=== PATIENT | male | born 1950 | race Caucasian/White ===

== ENCOUNTER 2020-03-02 15:02 | Inpatient (IN) | payer MEDICARE ==
[2020-03-02] MEDS: Sodium Chloride 0.9% 10 ML Syringe FLUSH PRN (15:15)
[2020-03-02] MEDS ORDERED: Nitroglycerin 0.4 MG Tab.SL SL PRN ×2 (15:22→17:03)
[2020-03-02] MEDS ORDERED: Aspirin 81 MG Tab.Chew PO ONE (15:23)
[2020-03-02] MEDS ORDERED: Furosemide 40 MG/4 ML VIAL IVPUSH ONE (16:22)
[2020-03-02] MEDS ORDERED: Metolazone 5 MG Tab PO ONE (16:22)
[2020-03-02] MEDS ORDERED: Phytonadione 5 MG in Sodium Chloride 0.9% 50 ML IV ONE (16:22)
[2020-03-02] MEDS ORDERED: hydrALAZINE 20 MG/ML SDV IVPUSH STA (16:24)
[2020-03-02] MEDS ORDERED: cefTRIAXone 2 GM Vial IVPUSH STA (16:25)
--- NOTE | 2020-03-02 16:27 | CR ---
INDICATION: Chest pain/dyspnea. CHEST ONE VIEW: An AP upright portable view of the chest was obtained 03/02/20 - comparison studies were not available at time of dictation. The heart appears enlarged, median sternotomy is noted. Upper lung field pulmonary vasculature is somewhat prominent raising question of a mild or early CHF. Heavy markings make it difficult to exclude areas of patchy bronchopneumonia. However, no gross consolidating pneumonia, or effusion was identified. Overlying EKG leads are noted. Evidence of exogenous obesity is noted. IMPRESSION: 1. ASHD cardiomegaly with probable mild or early CHF. 2. Heavy markings making it difficult to exclude patchy bronchopneumonia - full inspiration PA and lateral views of the chest may be helpful when clinically possible. 3. Exogenous obesity. MTDD
--- NOTE | 2020-03-02 16:34 | EDM.PDOC ---
ED HPI GENERAL MEDICAL PROBLEM - General Chief Complaint: Chest Pain Stated Complaint: CHEST PAIN Time Seen by Provider: 03/02/20 15:15 Source of Information: Reports: Patient History Limitations: Reports: No Limitations - History of Present Illness INITIAL COMMENTS - FREE TEXT/NARRATIVE: 03/01/20 @ 6 pm patient started to have a chest pain over the sternal area, 8/10, radiating to both arms, with associated nausea but no vomiting. He also c/o dyspnea. He usually can walk 1 block without any dyspnea but now he can only walk 1-15 ft and he is winded. His chest pain persisted all day and went to the Ed for evaluation. - Related Data Allergies Allergy/AdvReac Type Severity Reaction Status Date / Time No Known Allergies Allergy Verified 03/02/20 16:07 ED ROS GENERAL - Review of Systems Review Of Systems: See Below Constitutional: Reports: No Symptoms HEENT: Reports: No Symptoms Respiratory: Reports: Shortness of Breath Cardiovascular: Reports: Chest Pain Endocrine: Reports: No Symptoms GI/Abdominal: Reports: No Symptoms : Reports: No Symptoms Musculoskeletal: Reports: No Symptoms Skin: Reports: No Symptoms Neurological: Reports: No Symptoms Psychiatric: Reports: No Symptoms ED EXAM, GENERAL - Physical Exam Exam: See Below Exam Limited By: No Limitations General Appearance: Alert, No Apparent Distress Ears: Normal External Exam, Normal Canal Nose: Normal Inspection, Normal Mucosa Throat/Mouth: Normal Inspection, Normal Lips, Normal Teeth Head: Atraumatic, Normocephalic Neck: Normal Inspection, Supple, Non-Tender, Full Range of Motion Respiratory/Chest: No Respiratory Distress, Crackles Cardiovascular: Normal Peripheral Pulses, Regular Rate, Rhythm, No Gallop, No JVD GI/Abdominal: Normal Bowel Sounds, Soft, Non-Tender, No Organomegaly Back Exam: Normal Inspection, Full Range of Motion Extremities: Normal Inspection, Normal Range of Motion, Non-Tender, Pedal Edema Neurological: Alert, Oriented, CN II-XII Intact, Normal Cognition Psychiatric: Normal Affect Skin Exam: Erythema Course - Vital Signs Text/Narrative:: Labs/EKG/CXR was discussed with patient ASA 324 mg po x1 NTG 0.4 mg X3 Lasix 40 mg IV x1 Zaroxolyn 5 mg PO x1 Hydralazine 20 mg IV Rocephin 2 mg IV x1 [id number] - Orders/Labs/Meds Orders: Active Orders 24 hr Category Date Time Status EKG Documentation Completion [RC] ASDIRECTED Care 03/02/20 15:52 Active CORONAVIRUS COVID-19 SERA [MOLEC] Stat Lab 03/02/20 15:20 Received CULTURE BLOOD [BC] Urgent Lab 03/02/20 15:30 Received CULTURE BLOOD [BC] Urgent Lab 03/02/20 15:46 Received D-DIMER QUANTITATIVE [COAG] Stat Lab 03/02/20 15:46 Received Nitroglycerin [Nitrostat] Med 03/02/20 15:22 Active 0.4 mg SL Q5M PRN Phytonadione [AquaMephyton] 5 mg Med 03/02/20 16:22 Active Sodium Chloride 0.9% [Normal Saline] 50 ml IV NOW Sodium Chloride 0.9% [Saline Flush] Med 03/02/20 15:17 Active 10 ml FLUSH ASDIRECTED PRN Blood Culture x2 Reflex Set [OM.PC] Urgent Oth 03/02/20 15:17 Ordered Saline Lock Insert [OM.PC] Routine Oth 03/02/20 15:17 Ordered EKG 12 Lead [EK] Routine Ther 03/02/20 15:52 Ordered Medication Orders Phytonadione 5 mg/ Sodium (Chloride) 50.5 mls @ 100 mls/hr IV NOW ONE Stop: 03/02/20 16:52 Nitroglycerin (Nitrostat) 0.4 mg SL Q5M PRN PRN Reason: Chest Pain Sodium Chloride (Saline Flush) 10 ml FLUSH ASDIRECTED PRN PRN Reason: Keep Vein Open Last Admin: 03/02/20 15:15 Dose: 10 ml Documented by: DEMOND Labs: Laboratory Tests 03/02/20 03/02/20 03/02/20 Range/Units 15:30 15:30 15:30 WBC 16.9 H (3.2-10.1) x10-3/uL RBC 5.73 (3.90-5.90) x10(6)uL Hgb 15.6 (12.9-17.7) g/dL Hct 49.3 (38.3-50.1) % MCV 86.0 (80.8-98.7) fL MCH 27.2 (27.0-33.3) pg MCHC 31.6 (28.7-35.3) g/dL RDW 16.0 H (12.4-15.0) % Plt Count 323 (117-477) x10(3)uL MPV 8.2 (6.7-11.0) fL Neut % (Auto) 83.4 H (40.3-71.8) % Lymph % (Auto) 6.7 L (15.8-45.3) % Garland % (Auto) 9.5 (5.5-15.2) % Eos % (Auto) 0.1 (0.1-6.8) % Baso % (Auto) 0.3 (0.3-3.8) % Neut # (Auto) 14.1 H (1.7-6.9) x10-3/uL Lymph # (Auto) 1.1 (0.5-4.5) x10-3/uL Garland # (Auto) 1.6 H (0.0-1.2) x10-3/uL Eos # (Auto) 0.0 (0.0-0.6) x10-3/uL Baso # (Auto) 0.0 (0.0-0.3) x10-3/uL Add Manual Diff Yes Neutrophils % (Manual) 81 (46-82) % Lymphocytes % (Manual) 9 L (13-37) % Monocytes % (Manual) 10 (4-12) % PT 51.6 H* (9.0-11.1) sec INR 5.33 H* (1.00-1.24) APTT 46.4 H (24.4-33.2) SECONDS Sodium 138 (135-145) mmol/L Potassium 4.3 (3.5-5.3) mmol/L Chloride 100 (100-110) mmol/L Carbon Dioxide 25 (21-32) mmol/L BUN 15 (7-18) mg/dL Creatinine 1.0 (0.70-1.30) mg/dL Est Cr Clr Drug Dosing TNP Estimated GFR (MDRD) > 60 (>60) BUN/Creatinine Ratio 15.0 (9-20) Glucose 84 (80-116) mg/dL Lactic Acid (0.4-2.0) mmol/L Calcium 8.9 (8.6-10.2) mg/dL Total Bilirubin 1.1 (0.1-1.3) mg/dL AST 16 (5-25) IU/L ALT 18 (12-36) U/L Alkaline Phosphatase 146 H (56-112) IU/L Troponin I (4.0-60.3) pg/mL NT-Pro-B Natriuret Pep (<=125) pg/mL Total Protein 7.7 (6.0-8.0) g/dL Albumin 3.4 (3.2-4.6) g/dL Globulin 4.3 g/dL Albumin/Globulin Ratio 0.8 03/02/20 03/02/20 Range/Units 15:46 15:46 WBC (3.2-10.1) x10-3/uL RBC (3.90-5.90) x10(6)uL Hgb (12.9-17.7) g/dL Hct (38.3-50.1) % MCV (80.8-98.7) fL MCH (27.0-33.3) pg MCHC (28.7-35.3) g/dL RDW (12.4-15.0) % Plt Count (117-477) x10(3)uL MPV (6.7-11.0) fL Neut % (Auto) (40.3-71.8) % Lymph % (Auto) (15.8-45.3) % Garland % (Auto) (5.5-15.2) % Eos % (Auto) (0.1-6.8) % Baso % (Auto) (0.3-3.8) % Neut # (Auto) (1.7-6.9) x10-3/uL Lymph # (Auto) (0.5-4.5) x10-3/uL Garland # (Auto) (0.0-1.2) x10-3/uL Eos # (Auto) (0.0-0.6) x10-3/uL Baso # (Auto) (0.0-0.3) x10-3/uL Add Manual Diff Neutrophils % (Manual) (46-82) % Lymphocytes % (Manual) (13-37) % Monocytes % (Manual) (4-12) % PT (9.0-11.1) sec INR (1.00-1.24) APTT (24.4-33.2) SECONDS Sodium (135-145) mmol/L Potassium (3.5-5.3) mmol/L Chloride (100-110) mmol/L Carbon Dioxide (21-32) mmol/L BUN (7-18) mg/dL Creatinine (0.70-1.30) mg/dL Est Cr Clr Drug Dosing Estimated GFR (MDRD) (>60) BUN/Creatinine Ratio (9-20) Glucose (80-116) mg/dL Lactic Acid 1.4 (0.4-2.0) mmol/L Calcium (8.6-10.2) mg/dL Total Bilirubin (0.1-1.3) mg/dL AST (5-25) IU/L ALT (12-36) U/L Alkaline Phosphatase (56-112) IU/L Troponin I 16.8 (4.0-60.3) pg/mL NT-Pro-B Natriuret Pep 1739 H* (<=125) pg/mL Total Protein (6.0-8.0) g/dL Albumin (3.2-4.6) g/dL Globulin g/dL Albumin/Globulin Ratio Meds: Medications Generic Name Dose Route Start Last Admin Trade Name Freq PRN Reason Stop Dose Admin Phytonadione 5 mg/ Sodium 50.5 mls @ 100 mls/hr 03/02/20 16:22 Chloride IV 03/02/20 16:52 NOW ONE Nitroglycerin 0.4 mg 03/02/20 15:22 Nitrostat SL Q5M PRN Chest Pain Sodium Chloride 10 ml 03/02/20 15:17 03/02/20 15:15 Saline Flush FLUSH 10 ml ASDIRECTED PRN Administration Keep Vein Open Discontinued Medications Generic Name Dose Route Start Last Admin Trade Name Freq PRN Reason Stop Dose Admin Aspirin 324 mg 03/02/20 15:23 03/02/20 15:15 Aspirin PO 03/02/20 15:24 324 mg ONETIME ONE Administration Ceftriaxone Sodium 2 gm 03/02/20 16:25 Rocephin IVPUSH 03/02/20 16:26 NOW STA Furosemide 40 mg 03/02/20 16:22 Lasix IVPUSH 03/02/20 16:23 NOW ONE Hydralazine HCl 20 mg 03/02/20 16:24 Apresoline IVPUSH 03/02/20 16:25 NOW STA Metolazone 5 mg 03/02/20 16:22 Zaroxolyn PO 03/02/20 16:23 ONETIME ONE Departure - Departure Time of Disposition: 16:50 Disposition: Admitted As Inpatient 67 Condition: Good Clinical Impression: Cellulitis, Elevated INR, Atrial flutter, CHF exacerbation, Chest pain Referrals: Eric Dacosta MD [Primary Care Provider] - - My Orders Last 24 Hours: My Active Orders 03/02/20 15:17 Sodium Chloride 0.9% [Saline Flush] 10 ml FLUSH ASDIRECTED PRN Blood Culture x2 Reflex Set [OM.PC] Urgent Saline Lock Insert [OM.PC] Routine 03/02/20 15:20 CORONAVIRUS COVID-19 SERA [MOLEC] Stat 03/02/20 15:22 Nitroglycerin [Nitrostat] 0.4 mg SL Q5M PRN 03/02/20 15:30 CULTURE BLOOD [BC] Urgent 03/02/20 15:46 CULTURE BLOOD [BC] Urgent D-DIMER QUANTITATIVE [COAG] Stat 03/02/20 15:52 EKG Documentation Completion [RC] ASDIRECTED EKG 12 Lead [EK] Routine 03/02/20 16:22 Phytonadione [AquaMephyton] 5 mg Sodium Chloride 0.9% [Normal Saline] 50 ml IV NOW - Assessment/Plan Last 24 Hours: My Active Orders 03/02/20 15:17 Sodium Chloride 0.9% [Saline Flush] 10 ml FLUSH ASDIRECTED PRN Blood Culture x2 Reflex Set [OM.PC] Urgent Saline Lock Insert [OM.PC] Routine 03/02/20 15:20 CORONAVIRUS COVID-19 SERA [MOLEC] Stat 03/02/20 15:22 Nitroglycerin [Nitrostat] 0.4 mg SL Q5M PRN 03/02/20 15:30 CULTURE BLOOD [BC] Urgent 03/02/20 15:46 CULTURE BLOOD [BC] Urgent D-DIMER QUANTITATIVE [COAG] Stat 03/02/20 15:52 EKG Documentation Completion [RC] ASDIRECTED EKG 12 Lead [EK] Routine 03/02/20 16:22 Phytonadione [AquaMephyton] 5 mg Sodium Chloride 0.9% [Normal Saline] 50 ml IV NOW
[2020-03-02] MEDS ORDERED: Ondansetron 4 MG/2 ML SDV IV PRN (16:57)
[2020-03-02] MEDS ORDERED: Ketoconazole 2% Crm 30 GM Tube TOP PRN (17:03)
[2020-03-02] MEDS ORDERED: Hyoscyamine 0.125 MG Tab.SL SL PRN (17:23)
[2020-03-02] MEDS ORDERED: Insulin Lispro 100 Unit/ML 3 ML KwikPen SUBCUT SCH (18:00)
[2020-03-02] MEDS: Gemfibrozil 600 MG Tab PO SCH (18:04)
[2020-03-02] MEDS ORDERED: INSULIN DEGLUDEC 200 UNIT/ML SUBCUT SCH (21:00)
[2020-03-02] MEDS: Melatonin 3 MG Tab PO SCH (21:19)
[2020-03-02] MEDS: Metoprolol Tartrate 50 MG Tab PO SCH (21:20)
[2020-03-02] MEDS: Morphine 15 MG Tab.ER PO SCH (21:20)
[2020-03-02] MEDS: hydrALAZINE 50 MG Tab PO SCH (21:20)
[2020-03-02] MEDS: Acetaminophen 325 MG Tab PO PRN (22:45)
[2020-03-03] MEDS ORDERED: Insulin Lispro 100 Unit/ML 3 ML KwikPen SUBCUT SCH (07:30)
[2020-03-03] MEDS ORDERED: Furosemide 40 MG/4 ML VIAL IVPUSH SCH (08:00)
--- NOTE | 2020-03-03 08:46 | PCM.HP.2 ---
H&P History of Present Illness - General Date of Service: 03/03/20 Admit Problem/Dx: Admission Diagnosis/Problem Admission Diagnosis/Problem Chest pain Source of Information: Patient, Old Records History Limitations: Reports: No Limitations - History of Present Illness Initial Comments - Free Text/Narative: Sara is a 69-year-old male with coronary artery disease, who presented with shortness of breath on mild exertion, left-sided chest pain for at least 1-1/2 days. The pain was unrelieved by nitroglycerin. He describes mild to moderate pain radiating to the left arm. In the Emergency Room he was given some Lasix 40 mg IV with excellent diuresis, and this morning he feels much better. 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.His legs are chronically edematous mid chest Pain Score (Numeric/FACES): 7 - Related Data Allergies/Adverse Reactions: Allergies Allergy/AdvReac Type Severity Reaction Status Date / Time No Known Allergies Allergy Verified 03/02/20 18:27 Home Medications: Home Meds Aspirin [Halfprin] 81 mg PO DAILY 03/02/20 [History] Dapagliflozin Propanediol [Farxiga] 5 mg PO DAILY 03/02/20 [History] Finasteride 5 mg PO DAILY 03/02/20 [History] Furosemide [Lasix] 20 mg PO DAILY 03/02/20 [History] Hyoscyamine [Levsin] 0.125 mg SL QID PRN 03/02/20 [History] Insulin Aspart [NovoLOG] 22 unit SUBCUT ACBREAKFAST 03/02/20 [History] Insulin Aspart [NovoLOG] 26 units SUBCUT BID@12,18 03/02/20 [History] Insulin Degludec [Tresiba Flextouch U-200] 60 units SUBCUT BEDTIME 03/02/20 [History] Isosorbide Mononitrate [Imdur] 60 mg PO DAILY 03/02/20 [History] Ketoconazole [Nizoral 2% Crm] 1 applic TOP DAILY PRN 03/02/20 [History] Losartan [Cozaar] 100 mg PO DAILY 03/02/20 [History] Melatonin 3 mg PO BEDTIME 03/02/20 [History] Metoprolol Tartrate [Lopressor] 50 mg PO BID 03/02/20 [History] Morphine [MS Contin] 15 mg PO BID 03/02/20 [History] Naproxen 500 mg PO BID 03/02/20 [History] Nitroglycerin [Nitrostat] 0.4 mg SL Q5M PRN 03/02/20 [History] Pramipexole Di-HCl [Mirapex] 1 mg PO TID 03/02/20 [History] Rosuvastatin [Crestor] 40 mg PO DAILY 03/02/20 [History] Tamsulosin HCl [Flomax] 0.4 mg PO DAILY 03/02/20 [History] Warfarin [Coumadin] 2.5 mg PO MOWEFR 03/02/20 [History] Warfarin [Coumadin] 5 mg PO SUTUTHSA 03/02/20 [History] amLODIPine Besylate [Amlodipine Besylate] 10 mg PO DAILY 03/02/20 [History] gemfibroziL [Lopid] 600 mg PO BIDMEALS 03/02/20 [History] hydrALAZINE HCl [Hydralazine HCl] 50 mg PO TID 03/02/20 [History] Past Medical History HEENT History: Reports: Cataract Cardiovascular History: Reports: Blood Clots/VTE/DVT, Bypass, CAD, High Cholesterol, Hypertension Respiratory History: Reports: Sleep Apnea, Other (See Below) Other Respiratory History: lung nodule Gastrointestinal History: Reports: Diverticulosis, GERD Genitourinary History: Reports: Prostate Disorder Other Genitourinary History: LUTS; Elevated PSA Musculoskeletal History: Reports: Osteoarthritis Endocrine/Metabolic History: Reports: Diabetes, Type II Hematologic History: Reports: Anticoagulation Therapy - Infectious Disease History Infectious Disease History: Reports: Other (See Below) Other Infectious Disease History: unknown - Past Surgical History HEENT Surgical History: Reports: None Cardiovascular Surgical History: Reports: Coronary Artery Bypass, Other (See Below) Other Cardiovascular Surgeries/Procedures: bypass x8 in 2000 GI Surgical History: Reports: Appendectomy, Colonoscopy, Hernia Repair/Other Male Surgical History: Reports: None Musculoskeletal Surgical History: Reports: Knee Replacement, Other (See Below) Other Musculoskeletal Surgeries/Procedures:: lumbar spine surgey Social & Family History - Tobacco Use Tobacco Use Status *Q: Never Tobacco User Second Hand Smoke Exposure: No - Caffeine Use Caffeine Use: Reports: Soda - Recreational Drug Use Recreational Drug Use: No H&P Review of Systems - Review of Systems: Review Of Systems: Comprehensive ROS is negative, except as noted in HPI. Exam - Exam Exam: See Below - Vital Signs Vital Signs: Last Vital Signs Temp 98.6 F 03/03/20 04:00 Pulse 60 03/03/20 04:00 Resp 18 03/03/20 04:00 BP 122/61 03/03/20 04:00 Pulse Ox 95 03/03/20 04:00 Weight: 117.753 kg - Exam Quality Assessment: Supplemental Oxygen General: Alert, Oriented HEENT: PERRLA Neck: Supple Lungs: Clear to Auscultation, Crackles Cardiovascular: Irregular Rhythm GI/Abdominal Exam: Normal Bowel Sounds, Soft Back Exam: Normal Inspection Extremities: Pedal Edema, Mottled, Redness. No: Increased Warmth Skin: Warm, Dry Neurological: Cranial Nerves Intact Neuro Extensive - Mental Status: Alert, Oriented x3 Neuro Extensive - Motor, Sensory, Reflexes: CN II-XII Intact Psychiatric: Alert, Normal Affect - Patient Data Lab Results Last 24 hrs: Laboratory Results - last 24 hr 03/02/20 03/02/20 03/02/20 Range/Units 15:20 15:21 15:30 WBC 16.9 H (3.2-10.1) x10-3/uL RBC 5.73 (3.90-5.90) x10(6)uL Hgb 15.6 (12.9-17.7) g/dL Hct 49.3 (38.3-50.1) % MCV 86.0 (80.8-98.7) fL MCH 27.2 (27.0-33.3) pg MCHC 31.6 (28.7-35.3) g/dL RDW 16.0 H (12.4-15.0) % Plt Count 323 (117-477) x10(3)uL MPV 8.2 (6.7-11.0) fL Neut % (Auto) 83.4 H (40.3-71.8) % Lymph % (Auto) 6.7 L (15.8-45.3) % Clare % (Auto) 9.5 (5.5-15.2) % Eos % (Auto) 0.1 (0.1-6.8) % Baso % (Auto) 0.3 (0.3-3.8) % Neut # (Auto) 14.1 H (1.7-6.9) x10-3/uL Lymph # (Auto) 1.1 (0.5-4.5) x10-3/uL Clare # (Auto) 1.6 H (0.0-1.2) x10-3/uL Eos # (Auto) 0.0 (0.0-0.6) x10-3/uL Baso # (Auto) 0.0 (0.0-0.3) x10-3/uL Add Manual Diff Yes Neutrophils % (Manual) 81 (46-82) % Band Neutrophils % (0-6) % Lymphocytes % (Manual) 9 L (13-37) % Monocytes % (Manual) 10 (4-12) % PT (9.0-11.1) sec INR (1.00-1.24) APTT (24.4-33.2) SECONDS D-Dimer, Quantitative (0.0-0.59) mg/LFEU Sodium (135-145) mmol/L Potassium (3.5-5.3) mmol/L Chloride (100-110) mmol/L Carbon Dioxide (21-32) mmol/L BUN (7-18) mg/dL Creatinine (0.70-1.30) mg/dL Est Cr Clr Drug Dosing Estimated GFR (MDRD) (>60) BUN/Creatinine Ratio (9-20) Glucose (80-116) mg/dL POC Glucose 62 L (74-100) mg/dL Lactic Acid (0.4-2.0) mmol/L Calcium (8.6-10.2) mg/dL Total Bilirubin (0.1-1.3) mg/dL AST (5-25) IU/L ALT (12-36) U/L Alkaline Phosphatase (56-112) IU/L Troponin I (4.0-60.3) pg/mL NT-Pro-B Natriuret Pep (<=125) pg/mL Total Protein (6.0-8.0) g/dL Albumin (3.2-4.6) g/dL Globulin g/dL Albumin/Globulin Ratio SARS-CoV-2 RNA (SERA) Negative (NEGATIVE) 03/02/20 03/02/20 03/02/20 Range/Units 15:30 15:30 15:46 WBC (3.2-10.1) x10-3/uL RBC (3.90-5.90) x10(6)uL Hgb (12.9-17.7) g/dL Hct (38.3-50.1) % MCV (80.8-98.7) fL MCH (27.0-33.3) pg MCHC (28.7-35.3) g/dL RDW (12.4-15.0) % Plt Count (117-477) x10(3)uL MPV (6.7-11.0) fL Neut % (Auto) (40.3-71.8) % Lymph % (Auto) (15.8-45.3) % Clare % (Auto) (5.5-15.2) % Eos % (Auto) (0.1-6.8) % Baso % (Auto) (0.3-3.8) % Neut # (Auto) (1.7-6.9) x10-3/uL Lymph # (Auto) (0.5-4.5) x10-3/uL Clare # (Auto) (0.0-1.2) x10-3/uL Eos # (Auto) (0.0-0.6) x10-3/uL Baso # (Auto) (0.0-0.3) x10-3/uL Add Manual Diff Neutrophils % (Manual) (46-82) % Band Neutrophils % (0-6) % Lymphocytes % (Manual) (13-37) % Monocytes % (Manual) (4-12) % PT 51.6 H* (9.0-11.1) sec INR 5.33 H* (1.00-1.24) APTT 46.4 H (24.4-33.2) SECONDS D-Dimer, Quantitative (0.0-0.59) mg/LFEU Sodium 138 (135-145) mmol/L Potassium 4.3 (3.5-5.3) mmol/L Chloride 100 (100-110) mmol/L Carbon Dioxide 25 (21-32) mmol/L BUN 15 (7-18) mg/dL Creatinine 1.0 (0.70-1.30) mg/dL Est Cr Clr Drug Dosing TNP Estimated GFR (MDRD) > 60 (>60) BUN/Creatinine Ratio 15.0 (9-20) Glucose 84 (80-116) mg/dL POC Glucose (74-100) mg/dL Lactic Acid (0.4-2.0) mmol/L Calcium 8.9 (8.6-10.2) mg/dL Total Bilirubin 1.1 (0.1-1.3) mg/dL AST 16 (5-25) IU/L ALT 18 (12-36) U/L Alkaline Phosphatase 146 H (56-112) IU/L Troponin I 16.8 (4.0-60.3) pg/mL NT-Pro-B Natriuret Pep 1739 H* (<=125) pg/mL Total Protein 7.7 (6.0-8.0) g/dL Albumin 3.4 (3.2-4.6) g/dL Globulin 4.3 g/dL Albumin/Globulin Ratio 0.8 SARS-CoV-2 RNA (SERA) (NEGATIVE) 03/02/20 03/02/20 03/02/20 Range/Units 15:46 15:46 18:00 WBC (3.2-10.1) x10-3/uL RBC (3.90-5.90) x10(6)uL Hgb (12.9-17.7) g/dL Hct (38.3-50.1) % MCV (80.8-98.7) fL MCH (27.0-33.3) pg MCHC (28.7-35.3) g/dL RDW (12.4-15.0) % Plt Count (117-477) x10(3)uL MPV (6.7-11.0) fL Neut % (Auto) (40.3-71.8) % Lymph % (Auto) (15.8-45.3) % Clare % (Auto) (5.5-15.2) % Eos % (Auto) (0.1-6.8) % Baso % (Auto) (0.3-3.8) % Neut # (Auto) (1.7-6.9) x10-3/uL Lymph # (Auto) (0.5-4.5) x10-3/uL Clare # (Auto) (0.0-1.2) x10-3/uL Eos # (Auto) (0.0-0.6) x10-3/uL Baso # (Auto) (0.0-0.3) x10-3/uL Add Manual Diff Neutrophils % (Manual) (46-82) % Band Neutrophils % (0-6) % Lymphocytes % (Manual) (13-37) % Monocytes % (Manual) (4-12) % PT (9.0-11.1) sec INR (1.00-1.24) APTT (24.4-33.2) SECONDS D-Dimer, Quantitative 0.36 (0.0-0.59) mg/LFEU Sodium (135-145) mmol/L Potassium (3.5-5.3) mmol/L Chloride (100-110) mmol/L Carbon Dioxide (21-32) mmol/L BUN (7-18) mg/dL Creatinine (0.70-1.30) mg/dL Est Cr Clr Drug Dosing Estimated GFR (MDRD) (>60) BUN/Creatinine Ratio (9-20) Glucose (80-116) mg/dL POC Glucose 77 (74-100) mg/dL Lactic Acid 1.4 (0.4-2.0) mmol/L Calcium (8.6-10.2) mg/dL Total Bilirubin (0.1-1.3) mg/dL AST (5-25) IU/L ALT (12-36) U/L Alkaline Phosphatase (56-112) IU/L Troponin I (4.0-60.3) pg/mL NT-Pro-B Natriuret Pep (<=125) pg/mL Total Protein (6.0-8.0) g/dL Albumin (3.2-4.6) g/dL Globulin g/dL Albumin/Globulin Ratio SARS-CoV-2 RNA (SERA) (NEGATIVE) 03/02/20 03/03/20 03/03/20 Range/Units 20:47 06:20 06:30 WBC 18.0 H (3.2-10.1) x10-3/uL RBC 5.53 (3.90-5.90) x10(6)uL Hgb 15.3 (12.9-17.7) g/dL Hct 47.1 (38.3-50.1) % MCV 85.2 (80.8-98.7) fL MCH 27.7 (27.0-33.3) pg MCHC 32.6 (28.7-35.3) g/dL RDW 16.4 H (12.4-15.0) % Plt Count 286 (117-477) x10(3)uL MPV 8.0 (6.7-11.0) fL Neut % (Auto) (40.3-71.8) % Lymph % (Auto) (15.8-45.3) % Clare % (Auto) (5.5-15.2) % Eos % (Auto) (0.1-6.8) % Baso % (Auto) (0.3-3.8) % Neut # (Auto) (1.7-6.9) x10-3/uL Lymph # (Auto) (0.5-4.5) x10-3/uL Clare # (Auto) (0.0-1.2) x10-3/uL Eos # (Auto) (0.0-0.6) x10-3/uL Baso # (Auto) (0.0-0.3) x10-3/uL Add Manual Diff Yes Neutrophils % (Manual) 84 H (46-82) % Band Neutrophils % 1 (0-6) % Lymphocytes % (Manual) 7 L (13-37) % Monocytes % (Manual) 8 (4-12) % PT (9.0-11.1) sec INR (1.00-1.24) APTT (24.4-33.2) SECONDS D-Dimer, Quantitative (0.0-0.59) mg/LFEU Sodium (135-145) mmol/L Potassium (3.5-5.3) mmol/L Chloride (100-110) mmol/L Carbon Dioxide (21-32) mmol/L BUN (7-18) mg/dL Creatinine (0.70-1.30) mg/dL Est Cr Clr Drug Dosing Estimated GFR (MDRD) (>60) BUN/Creatinine Ratio (9-20) Glucose (80-116) mg/dL POC Glucose 102 H 74 (74-100) mg/dL Lactic Acid (0.4-2.0) mmol/L Calcium (8.6-10.2) mg/dL Total Bilirubin (0.1-1.3) mg/dL AST (5-25) IU/L ALT (12-36) U/L Alkaline Phosphatase (56-112) IU/L Troponin I (4.0-60.3) pg/mL NT-Pro-B Natriuret Pep (<=125) pg/mL Total Protein (6.0-8.0) g/dL Albumin (3.2-4.6) g/dL Globulin g/dL Albumin/Globulin Ratio SARS-CoV-2 RNA (SERA) (NEGATIVE) 03/03/20 Range/Units 06:30 WBC (3.2-10.1) x10-3/uL RBC (3.90-5.90) x10(6)uL Hgb (12.9-17.7) g/dL Hct (38.3-50.1) % MCV (80.8-98.7) fL MCH (27.0-33.3) pg MCHC (28.7-35.3) g/dL RDW (12.4-15.0) % Plt Count (117-477) x10(3)uL MPV (6.7-11.0) fL Neut % (Auto) (40.3-71.8) % Lymph % (Auto) (15.8-45.3) % Clare % (Auto) (5.5-15.2) % Eos % (Auto) (0.1-6.8) % Baso % (Auto) (0.3-3.8) % Neut # (Auto) (1.7-6.9) x10-3/uL Lymph # (Auto) (0.5-4.5) x10-3/uL Clare # (Auto) (0.0-1.2) x10-3/uL Eos # (Auto) (0.0-0.6) x10-3/uL Baso # (Auto) (0.0-0.3) x10-3/uL Add Manual Diff Neutrophils % (Manual) (46-82) % Band Neutrophils % (0-6) % Lymphocytes % (Manual) (13-37) % Monocytes % (Manual) (4-12) % PT (9.0-11.1) sec INR (1.00-1.24) APTT (24.4-33.2) SECONDS D-Dimer, Quantitative (0.0-0.59) mg/LFEU Sodium 138 (135-145) mmol/L Potassium 3.6 (3.5-5.3) mmol/L Chloride 98 L (100-110) mmol/L Carbon Dioxide 28 (21-32) mmol/L BUN 23 H (7-18) mg/dL Creatinine 1.1 (0.70-1.30) mg/dL Est Cr Clr Drug Dosing 60.09 Estimated GFR (MDRD) > 60 (>60) BUN/Creatinine Ratio 20.9 H (9-20) Glucose 82 (80-116) mg/dL POC Glucose (74-100) mg/dL Lactic Acid (0.4-2.0) mmol/L Calcium 8.6 (8.6-10.2) mg/dL Total Bilirubin (0.1-1.3) mg/dL AST (5-25) IU/L ALT (12-36) U/L Alkaline Phosphatase (56-112) IU/L Troponin I (4.0-60.3) pg/mL NT-Pro-B Natriuret Pep (<=125) pg/mL Total Protein (6.0-8.0) g/dL Albumin (3.2-4.6) g/dL Globulin g/dL Albumin/Globulin Ratio SARS-CoV-2 RNA (SERA) (NEGATIVE) Result Diagrams: 03/03/20 06:30 03/03/20 06:30 Sepsis Event Note - Evaluation Sepsis Screening Result: Sepsis Risk - Focused Exam Vital Signs: Vital Signs Temp Pulse Pulse Resp BP BP Pulse Ox 03/03/20 04:00 98.6 F 60 18 122/61 95 03/03/20 00:04 100.5 F 63 20 125/63 95 03/02/20 21:20 80 141/69 H - Problem List (1) CHF exacerbation SNOMED Code(s): 922243270, 00607009052406 ICD Code: I50.9 - HEART FAILURE, UNSPECIFIED Status: Acute Current Visit: Yes Qualifiers: Heart failure type: unspecified Qualified Code(s): I50.9 - Heart failure, unspecified (2) CAD (coronary artery disease) SNOMED Code(s): 84819769 ICD Code: I25.10 - ATHSCL HEART DISEASE OF [place] CORONARY ARTERY W/O ANG PCTRS Status: Acute Current Visit: Yes Qualifiers: Coronary Disease-Associated Artery/Lesion type: bypass graft Associated angina: without angina (3) Knee osteoarthritis SNOMED Code(s): 273942912 ICD Code: M17.10 - UNILATERAL PRIMARY OSTEOARTHRITIS, UNSPECIFIED KNEE Status: Chronic Current Visit: Yes Qualifiers: Osteoarthritis type: post-traumatic (4) HLD (hyperlipidemia) SNOMED Code(s): 49401794 ICD Code: E78.5 - HYPERLIPIDEMIA, UNSPECIFIED Status: Acute Current Visit: Yes Qualifiers: Hyperlipidemia type: unspecified Qualified Code(s): E78.5 - Hyperlipidemia, unspecified (5) KATALINA (obstructive sleep apnea) SNOMED Code(s): 41422003 ICD Code: G47.33 - OBSTRUCTIVE SLEEP APNEA (ADULT) (PEDIATRIC) Status: Acute Current Visit: Yes (6) GERD (gastroesophageal reflux disease) SNOMED Code(s): 471440925 ICD Code: K21.9 - GASTRO-ESOPHAGEAL REFLUX DISEASE WITHOUT ESOPHAGITIS Status: Acute Current Visit: Yes Qualifiers: Esophagitis presence: without esophagitis Qualified Code(s): K21.9 - Gastro-esophageal reflux disease without esophagitis (7) HTN (hypertension) SNOMED Code(s): 86985932 ICD Code: I10 - ESSENTIAL (PRIMARY) HYPERTENSION Status: Chronic Current Visit: Yes Qualifiers: Hypertension type: essential hypertension Qualified Code(s): I10 - Essential (primary) hypertension (8) Stasis dermatitis of both legs SNOMED Code(s): 73965823 ICD Code: I87.2 - VENOUS INSUFFICIENCY (CHRONIC) (PERIPHERAL) Status: Acute Current Visit: Yes (9) Chest pain SNOMED Code(s): 98563388 ICD Code: R07.9 - CHEST PAIN, UNSPECIFIED Status: Acute Current Visit: Yes Qualifiers: Ischemic chest pain type: unspecified angina pectoris type (10) Elevated INR SNOMED Code(s): 793840442 ICD Code: R79.1 - ABNORMAL COAGULATION PROFILE Status: Acute Current Visit: Yes (11) Diabetes mellitus SNOMED Code(s): 90705910 ICD Code: E11.9 - TYPE 2 DIABETES MELLITUS WITHOUT COMPLICATIONS Status: Acute Current Visit: Yes Qualifiers: Diabetes mellitus type: type 2 Problem List Initiated/Reviewed/Updated: Yes Orders Last 24hrs: Active Orders 24 hr Category Date Time Status Patient Status [ADT] Routine ADT 03/02/20 16:57 Active Blood Glucose Check, Bedside [RC] WITHMEALSANDBED Care 03/02/20 16:57 Active Cardiac Monitoring [RC] CONTINUOUS Care 03/02/20 17:01 Active Oxygen Therapy [RC] PRN Care 03/02/20 16:57 Active Pulse Oximetry [RC] CONTINUOUS Care 03/02/20 17:01 Active Up With Assistance [RC] ASDIRECTED Care 03/02/20 16:57 Active Vital Signs [RC] 00,04,08,12,16,20 Care 03/02/20 16:57 Active Heart Healthy Diet [DIET] Diet 03/02/20 Dinner Ordered CULTURE BLOOD [BC] Urgent Lab 03/02/20 15:30 Received CULTURE BLOOD [BC] Urgent Lab 03/02/20 15:46 Received Acetaminophen [TylenoL] Med 03/02/20 22:39 Active 650 mg PO Q4H PRN Aspirin [Halfprin] Med 03/03/20 09:00 Active 81 mg PO DAILY Dapagliflozin Propanediol [Farxiga] Med 03/03/20 09:00 Pending 5 mg PO DAILY Docusate Sodium/Sennosides [Senna Plus] Med 03/02/20 16:57 Active 1 tab PO BID PRN Finasteride [Proscar] Med 03/03/20 09:00 Active 5 mg PO DAILY Furosemide [Lasix] Med 03/03/20 08:00 Active 40 mg IVPUSH BIDDIURETIC Hyoscyamine [Hyomax-SL] Med 03/02/20 17:23 Active 0.125 mg SL QID PRN Insulin Degludec [Tresiba Flextouch U-200] Med 03/02/20 21:00 Active 60 units SUBCUT BEDTIME Insulin Lispro [HumaLOG] Med 03/03/20 07:30 Active 22 unit SUBCUT ACBREAKFAST Insulin Lispro [HumaLOG] Med 03/02/20 18:00 Active 26 unit SUBCUT BID@12,18 Isosorbide Mononitrate [Imdur] Med 03/03/20 09:00 Active 60 mg PO DAILY Ketoconazole [Nizoral 2% Crm] Med 03/02/20 17:03 Active 0 gm TOP DAILY PRN Losartan [Cozaar] Med 03/03/20 09:00 Active 100 mg PO DAILY Melatonin Med 03/02/20 21:00 Active 3 mg PO BEDTIME Metoprolol Tartrate [Lopressor] Med 03/02/20 21:00 Active 50 mg PO BID Morphine [MS Contin] Med 03/02/20 21:00 Active 15 mg PO BID Nitroglycerin [Nitrostat] Med 03/02/20 17:03 Active 0.4 mg SL Q5M PRN Ondansetron [Zofran] Med 03/02/20 16:57 Active 4 mg IV Q4H PRN Pramipexole [Mirapex] Med 03/02/20 21:00 Active 1 mg PO TID Rosuvastatin [Crestor] Med 03/03/20 09:00 Active 40 mg PO DAILY Sodium Chloride 0.9% [Saline Flush] Med 03/02/20 15:17 Active 10 ml FLUSH ASDIRECTED PRN Tamsulosin [Flomax] Med 03/03/20 09:00 Active 0.4 mg PO DAILY amLODIPine [Norvasc] Med 03/03/20 09:00 Active 10 mg PO DAILY cefTRIAXone [Rocephin] Med 03/03/20 15:00 Active 1 gm IVPUSH Q24H gemfibroziL [Lopid] Med 03/02/20 18:00 Active 600 mg PO BIDMEALS hydrALAZINE [Apresoline] Med 03/02/20 21:00 Active 50 mg PO TID Blood Culture x2 Reflex Set [OM.PC] Urgent Oth 03/02/20 15:17 Ordered Saline Lock Insert [OM.PC] Routine Oth 03/02/20 15:17 Ordered Code Status [Resuscitation Status] Routine Resus Stat 03/02/20 18:31 Ordered EKG 12 Lead [EK] Routine Ther 03/02/20 15:52 Ordered Medication Orders Acetaminophen (Tylenol) 650 mg PO Q4H PRN PRN Reason: Headache/Pain Last Admin: 03/02/20 22:45 Dose: 650 mg Documented by: STACY Amlodipine Besylate (Norvasc) 10 mg PO DAILY [facility] Aspirin (Halfprin) 81 mg PO DAILY [facility] Ceftriaxone Sodium (Rocephin) 1 gm IVPUSH Q24H [facility] Finasteride (Proscar) 5 mg PO DAILY [facility] Furosemide (Lasix) 40 mg IVPUSH BIDDIURETIC [facility] Gemfibrozil (Lopid) 600 mg PO BIDMEALS [facility] Last Admin: 03/02/20 18:04 Dose: 600 mg Documented by: ELLE Hydralazine HCl (Apresoline) 50 mg PO TID [facility] Last Admin: 03/02/20 21:20 Dose: 50 mg Documented by: STACY Hyoscyamine (Hyomax-Sl) 0.125 mg SL QID PRN PRN Reason: Spasms Insulin Human Lispro (Humalog) 22 unit SUBCUT ACBREAKFAST [facility] Insulin Human Lispro (Humalog) 26 unit SUBCUT BID@12,18 [facility] Last Admin: 03/02/20 18:02 Dose: Not Given Documented by: ELLE Isosorbide Mononitrate (Imdur) 60 mg PO DAILY [facility] Ketoconazole (Nizoral 2% Crm) 0 gm TOP DAILY PRN PRN Reason: SORE BY MOUTH Losartan Potassium (Cozaar) 100 mg PO DAILY [facility] Melatonin (Melatonin) 3 mg PO BEDTIME [facility] Last Admin: 03/02/20 21:19 Dose: 3 mg Documented by: STACY Metoprolol Tartrate (Lopressor) 50 mg PO BID [facility] Last Admin: 03/02/20 21:20 Dose: 50 mg Documented by: STACY Morphine Sulfate (Ms Contin) 15 mg PO BID [facility] Last Admin: 03/02/20 21:20 Dose: 15 mg Documented by: STACY Nitroglycerin (Nitrostat) 0.4 mg SL Q5M PRN PRN Reason: Chest Pain Non-Formulary Medication (Dapagliflozin Propanediol [Farxiga]) 5 mg PO DAILY [facility] Insulin Degludec [ Tresiba Flextouch U- 200] 200 Units/Ml Pen Own Med 60 units SUBCUT BEDTIME [facility] Last Admin: 03/02/20 21:22 Dose: Not Given Documented by: STACY Ondansetron HCl (Zofran) 4 mg IV Q4H PRN PRN Reason: Nausea/Vomiting Pramipexole Dihydrochloride (Mirapex) 1 mg PO TID [facility] Last Admin: 03/02/20 21:19 Dose: 1 mg Documented by: STACY Rosuvastatin Calcium (Crestor) 40 mg PO DAILY [facility] Senna/Docusate Sodium (Senna Plus) 1 tab PO BID PRN PRN Reason: Constipation Sodium Chloride (Saline Flush) 10 ml FLUSH ASDIRECTED PRN PRN Reason: Keep Vein Open Last Admin: 03/02/20 15:15 Dose: 10 ml Documented by: DEMOND Tamsulosin HCl (Flomax) 0.4 mg PO DAILY [facility] Assessment/Plan Comment:: Admit to inpatient.He's chest pain has improved and still has shortness of breath. We'll continue the diuresis and ambulate him, to wean him off oxygen supplementation.
[2020-03-03] MEDS ORDERED: Insulin Lispro 100 Unit/ML 3 ML KwikPen SUBCUT ONE (08:48)
[2020-03-03] MEDS: Gemfibrozil 600 MG Tab PO SCH ×2 (08:53→17:08)
[2020-03-03] MEDS: hydrALAZINE 50 MG Tab PO SCH ×3 (08:53→22:14)
[2020-03-03] MEDS: Losartan 100 MG Tab PO SCH (08:54)
[2020-03-03] MEDS: Rosuvastatin 20 MG Tab PO SCH (08:54)
[2020-03-03] MEDS: Furosemide 40 MG/4 ML VIAL IVPUSH SCH ×2 (08:55→14:07)
[2020-03-03] MEDS: Finasteride 5 MG Tab PO SCH (08:56)
[2020-03-03] MEDS: Sodium Chloride 0.9% 10 ML Syringe FLUSH PRN (08:56)
[2020-03-03] MEDS: Morphine 15 MG Tab.ER PO SCH ×2 (08:56→21:39)
[2020-03-03] MEDS: amLODIPine 10 MG Tab PO SCH (08:56)
[2020-03-03] MEDS: Tamsulosin 0.4 MG Cap.ER PO SCH (08:57)
[2020-03-03] MEDS: Metoprolol Tartrate 50 MG Tab PO SCH ×2 (08:57→22:15)
[2020-03-03] MEDS: Isosorbide Mononitrate 60 MG Tab.ER PO SCH (08:57)
[2020-03-03] MEDS: Aspirin 81 MG Tab.EC PO SCH (08:57)
[2020-03-03] MEDS ORDERED: DAPAGLIFLOZIN PROPANEDIOL 5 MG PO SCH (09:00)
[2020-03-03] MEDS ORDERED: Glucagon,Human Recombinant 1 MG Vial IM PRN (09:01)
[2020-03-03] MEDS ORDERED: 50% Dextrose in Water 50 ML Syringe IVPUSH PRN (09:01)
[2020-03-03] MEDS ORDERED: Warfarin Sliding Scale PO SCH (09:45)
[2020-03-03] MEDS: Insulin Lispro 100 Unit/ML 3 ML KwikPen SUBCUT SCH ×2 (11:52→17:08)
[2020-03-03] MEDS ORDERED: cefTRIAXone 1 GM Vial IVPUSH SCH (15:00)
[2020-03-03] MEDS ORDERED: Warfarin 2.5 MG Tab PO ONE (16:00)
[2020-03-03] MEDS: Acetaminophen 325 MG Tab PO PRN (17:07)
[2020-03-03] MEDS ORDERED: Insulin Glargine,Human Rec. Analog 100 Units/ML 3 ML Pen SUBCUT SCH (21:00)
[2020-03-03] MEDS ORDERED: Insulin Glargine,Human Rec. Analog 100 Units/ML 3 ML Pen SUBCUT ONE (21:11)
[2020-03-03] MEDS: Melatonin 3 MG Tab PO SCH (21:36)
[2020-03-04] MEDS: Insulin Lispro 100 Unit/ML 3 ML KwikPen SUBCUT SCH (08:39)
[2020-03-04] MEDS: Gemfibrozil 600 MG Tab PO SCH (08:39)
[2020-03-04] MEDS: Morphine 15 MG Tab.ER PO SCH (08:40)
[2020-03-04] MEDS: amLODIPine 10 MG Tab PO SCH (08:40)
[2020-03-04] MEDS: Tamsulosin 0.4 MG Cap.ER PO SCH (08:40)
[2020-03-04] MEDS: hydrALAZINE 50 MG Tab PO SCH (08:40)
[2020-03-04] MEDS: Rosuvastatin 20 MG Tab PO SCH (08:40)
[2020-03-04] MEDS: Isosorbide Mononitrate 60 MG Tab.ER PO SCH (08:41)
[2020-03-04] MEDS: Metoprolol Tartrate 50 MG Tab PO SCH (08:41)
[2020-03-04] MEDS: Aspirin 81 MG Tab.EC PO SCH (08:41)
[2020-03-04] MEDS: Losartan 100 MG Tab PO SCH (08:41)
[2020-03-04] MEDS: Finasteride 5 MG Tab PO SCH (08:42)
[2020-03-04] MEDS: Furosemide 40 MG/4 ML VIAL IVPUSH SCH (11:41)
[2020-03-04] MEDS ORDERED: Warfarin 5 MG Tab PO ONE (16:00)
--- NOTE | 2020-03-05 06:57 | DISCH ---
DISCHARGE DATE: 03/04/2020 REASON FOR ADMISSION: 1. Chest pain. 2. Congestive heart failure exacerbation. 3. Type 2 diabetes. 4. Obstructive sleep apnea. 5. Obesity. 6. Lower extremity edema. 7. Chronic osteoarthritis of the knees. 8. Hyperlipidemia. 9. Hypertension. DISCHARGE DIAGNOSES: 1. Chest pain. 2. Congestive heart failure exacerbation. 3. Type 2 diabetes. 4. Obstructive sleep apnea. 5. Obesity. 6. Lower extremity edema. 7. Chronic osteoarthritis of the knees. 8. Hyperlipidemia. 9. Hypertension. 10.Acute renal insufficiency. BRIEF HISTORY AND HOSPITAL COURSE: A 69-year-old who was admitted with 1-1/2 day history of chest pain which was unrelieved by oral nitroglycerin. He was also short of breath on ambulation. He was given Lasix and improved dramatically. Did have low blood pressures and low blood sugars in the hospital. Having gotten 40 mg of Lasix b.i.d., his creatinine crept up to 1.7. The following changes were made to his medications therefore. Insulin was changed to 30 units at night, Tresiba. Losartan was discontinued. NovoLog was changed to only 10 units with every meal. His Coumadin will be dosed appropriately by the pharmacist, and the rest of his home medications were continued as previously prescribed. I would like to have him follow with Dr. Dacosta on Sunday. I spent more than 35 minutes in the discharge. /[id number] ELOY/[place]
== END 2020-03-04 12:18 | disposition home or self-care (01) | DRG 292 ==
LOC: FB.ED 15:02 → FB.MS 16:57 → UNDOADMIN 16:57 → FB.MS 17:35 → UNDOADMIN 03-03 09:15 → FB.MS 03-03 09:15 → UNDODISIN 03-04 12:18
PROVIDERS: ADMIT Emergency Medicine; ATTEND Family Medicine
DX: I11.0 Hypertensive heart disease with heart failure (principal); I48.92 Unspecified atrial flutter; R07.9 Chest pain, unspecified; R79.1 Abnormal coagulation profile; L03.90 Cellulitis, unspecified; Z20.822 Contact with and (suspected) exposure to COVID-19; Z68.41 Body mass index [BMI] 40.0-44.9, adult; I50.9 Heart failure, unspecified; G47.33 Obstructive sleep apnea (adult) (pediatric); E66.9 Obesity, unspecified; M17.0 Bilateral primary osteoarthritis of knee; E78.5 Hyperlipidemia, unspecified; N28.9 Disorder of kidney and ureter, unspecified; I25.10 Atherosclerotic heart disease of native coronary artery without angina pectoris; K21.9 Gastro-esophageal reflux disease without esophagitis; K57.90 Diverticulosis of intestine, part unspecified, without perforation or abscess without bleeding; E11.9 Type 2 diabetes mellitus without complications; E78.00 Pure hypercholesterolemia, unspecified; Z96.659 Presence of unspecified artificial knee joint; I87.2 Venous insufficiency (chronic) (peripheral); Z79.01 Long term (current) use of anticoagulants; Z79.82 Long term (current) use of aspirin; Z79.4 Long term (current) use of insulin; Z79.899 Other long term (current) drug therapy; Z90.49 Acquired absence of other specified parts of digestive tract
CPT/HCPCS: 36415; 71045; 80048; 80053; 82962; 83605; 83880; 84484; 85025; 85379; 85610; 85730; 87040; 93005; 94760; 96365; 96375; 99284; 99285-25; A9270-GY; J0696; J1815; J1815-GY; J1940; J3430; U0002

== ENCOUNTER 2022-07-03 20:23 | Emergency (ER) | payer MEDICARE ==
[2022-07-03] MEDS: Pantoprazole 40 MG Tab.CR PO ONE (20:56)
[2022-07-03] MEDS: Alum Hydroxide/Mag Hydroxide 15 ML, Lidocaine 2% 15 ML PO ONE ×2 (20:56)
[2022-07-03 21:19] LABS: BLOOD UREA NITROGEN,BUN 21 mg/dL (7-18); CALCIUM 8.8 mg/dL (8.6-10.2); CARBON DIOXIDE,CO2 28 mmol/L (21-32); CHLORIDE,CL 104 mmol/L (100-110); CREATININE 0.7 mg/dL (0.70-1.30); ESTIMATED GFR 99 mL/min (>60); GLUCOSE RANDOM 105 mg/dL (80-116); POTASSIUM,K 3.7 mmol/L (3.5-5.3); SODIUM,NA 140 mmol/L (135-145)
[2022-07-03 21:20] LABS: BASOPHILS ABSOLUTE AUTO 0.1 x10-3/uL (0.0-0.3); BASOPHILS PERCENT AUTO 0.7 % (0.3-3.8); EOSINOPHILS ABSOLUTE AUTO 0.2 x10-3/uL (0.0-0.6); EOSINOPHILS PERCENT AUTO 2.2 % (0.1-6.8); HEMATOCRIT 50.2 % (38.3-50.1); HEMOGLOBIN 16.5 g/dL (12.9-17.7); LYMPHOCYTES ABSOLUTE AUTO 1.5 x10-3/uL (0.5-4.5); LYMPHOCYTES PERCENT AUTO 15.4 % (15.8-45.3); MEAN CORPUSCULAR HEMOGLOBIN 28.8 pg (27.0-33.3); MEAN CORPUSCULAR HGB CONC 32.8 g/dL (28.7-35.3); MEAN CORPUSCULAR VOLUME 87.6 fL (80.8-98.7); MEAN PLATELET VOLUME 7.8 fL (6.7-11.0); MONOCYTES ABSOLUTE AUTO 0.8 x10-3/uL (0.0-1.2); MONOCYTES PERCENT AUTO 8.4 % (5.5-15.2); NEUTROPHILS ABSOLUTE AUTO 7.3 x10-3/uL (1.7-6.9); NEUTROPHILS PERCENT AUTO 73.3 % (40.3-71.8); PLATELET COUNT,PLT 318 x10(3)uL (117-477); RED BLOOD CELL COUNT 5.73 x10(6)uL (3.90-5.90); RED CELL DISTRIBUTION WIDTH 15.6 % (12.4-15.0)
[2022-07-03 21:25] LABS: A/G RATIO 0.7; ALANINE AMINOTRANSFERASE,ALT 17 U/L (12-36); ALBUMIN 2.9 g/dL (3.2-4.6); ALKALINE PHOSPHATASE 109 IU/L (56-112); ASPARTATE AMNIOTRANSFERASE,AST 19 IU/L (5-25); BILIRUBIN TOTAL 0.8 mg/dL (0.1-1.3); PROTEIN TOTAL,TP 6.8 g/dL (6.0-8.0)
[2022-07-04] MEDS ORDERED: Pantoprazole 40 MG Tab.CR PO SCH (06:00)
== END 2022-07-03 22:15 | disposition home or self-care (01) ==
LOC: FB.ED 20:23
DX: K21.9 Gastro-esophageal reflux disease without esophagitis (principal); I10 Essential (primary) hypertension; I25.810 Atherosclerosis of coronary artery bypass graft(s) without angina pectoris; E11.9 Type 2 diabetes mellitus without complications; M19.90 Unspecified osteoarthritis, unspecified site; E78.00 Pure hypercholesterolemia, unspecified; Z79.82 Long term (current) use of aspirin; Z79.899 Other long term (current) drug therapy; Z79.4 Long term (current) use of insulin; Z79.01 Long term (current) use of anticoagulants
CPT/HCPCS: 36415; 71045; 80053; 84484; 85025; 87651; 93005; 99284; A9270